=== PATIENT | male | born 1970 | race Caucasian/White ===

== ENCOUNTER 2016-11-26 11:33 | Observation (INO) | payer SELFPAY ==
[2016-11-26] MEDS ORDERED: methylPREDNISolone 125 MG* 2 ML VIAL IV ONE (12:25)
[2016-11-26] MEDS ORDERED: NS 0.9% 1000 ML* 1,000 ML IV ONE (12:25)
[2016-11-26 12:34] LABS: Hematocrit 47 % (42-52); Hemoglobin 15.7 g/dl (14.0-18.0); Mean Corpuscular HGB Conc 34 g/dl (31-36); Mean Corpuscular Hemoglobin 30 pg (27-31); Mean Corpuscular Volume 89 fL (80-94); Mean Platelet Volume 9 um3 (7.4-10.4); Red Blood Count 5.23 10^6/ul (4.0-5.4); Red Cell Distribution Width 13 % (10.5-15)
[2016-11-26] MEDS: Albuterol/Ipratropium NEB.SOL* Albuterol 2.5 MG/Ipratropium 0.5 MG 3 ML INH SCH ×5 (12:37→22:50)
[2016-11-26 12:45] LABS: Albumin 4.2 g/dL (3.2-5.2); BUN/Creatinine Ratio 12.8 (8-20); EGFR African American 112.1 (>60); EGFR Non-African American 87.2 (>60); Globulin 3.1 g/dL (2-4); Potassium 4.2 mmol/L (3.5-5.0); Total Bilirubin 0.6 mg/dL (0.2-1.0); Total Protein 7.3 g/dL (6.4-8.9)
[2016-11-26 12:46] LABS: Troponin I 0.01 ng/mL (<0.04)
[2016-11-26 13:03] LABS: C Reactive Protein 5.46 mg/L (< 5.00)
[2016-11-26] MEDS ORDERED: Azithromycin IV* 500 MG ADVAN VIAL IVPB ONE (13:58)
[2016-11-26] MEDS ORDERED: Albuterol/Ipratropium NEB.SOL* Albuterol 2.5 MG/Ipratropium 0.5 MG 3 ML INH ONE (14:14)
[2016-11-26 14:28] LABS: Urine Bilirubin Negative (Negative); Urine Glucose Negative (Negative); Urine Nitrite Negative (Negative)
--- NOTE | 2016-11-26 14:43 | RAD ---
HISTORY: Shortness of breath COMPARISONS: April 03, 2013 VIEWS: 2: Frontal dual-energy and lateral views of the chest. FINDINGS: CARDIOMEDIASTINAL SILHOUETTE: The cardiomediastinal silhouette is normal. SUNSHINE: The sunshine are normal. PLEURA: The costophrenic angles are sharp. No pleural abnormalities are noted. LUNG PARENCHYMA: The lungs are clear. ABDOMEN: The upper abdomen is clear. There is no subphrenic gas. BONES AND SOFT TISSUES: No bone or soft tissue abnormalities are noted. OTHER: None. IMPRESSION: NO ACTIVE CARDIOPULMONARY DISEASE.
--- NOTE | 2016-11-26 14:45 | ED ---
I, Oh,Hortensia, scribed for Eduardo Jewell MD on 11/26/16 at 1225 . Respiratory - HPI Summary HPI Summary: THis 46 y/o male presents to ED for chest congestion, productive cough, and dyspnea since a week ago. Upright position makes the dyspnea and chest congestion better. Pt also reports general myalgia, general weakness, subjective fever, and chest pain more notable at right. PMHx includes asthma and GERD. He is currently albuterol inhaler and omeprazole. 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 Onset/Duration: Gradual Onset Timing: Constant Initial Severity: Moderate Current Severity: Moderate Pain Intensity: 4 Character: Wheezing, Cough (Productive) Aggravating Factor(s): Nothing Alleviating Factor(s): Upright Position Associated Signs and Symptoms: Fever, Chest Pain, URI, Dyspnea - Allergy/Home Medications Allergies/Adverse Reactions: Allergies Allergy/AdvReac Type Severity Reaction Status Date / Time No Known Allergies Allergy Verified 11/26/16 11:43 PMH/Surg Hx/FS Hx/Imm Hx Endocrine/Hematology History: Denies: Hx Diabetes, Hx Systemic Lupus Erythematosus Cardiovascular History: Denies: Hx Congestive Heart Failure, Hx Hypertension Respiratory History: Reports: Hx Asthma GI History: Reports: Hx Gastroesophageal Reflux Disease History: Denies: Hx Dialysis, Hx Renal Disease Musculoskeletal History: Denies: Hx Rheumatoid Arthritis - Cancer History Hx Chemotherapy: No - Surgical History Surgery Procedure, Year, and Place: 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 same surgery 2X to the right ear; Infectious Disease History: No Infectious Disease History: Denies: Traveled Outside the [place] in Last 30 Days - Family History Known Family History: Positive: Cardiac Disease - Father Negative: Hypertension, Diabetes - Social History Lives: With Family Alcohol Use: Weekly Hx Substance Use: No Substance Use Type: Reports: None Hx Tobacco Use: No Smoking Status (MU): Never Smoked Tobacco Review of Systems Positive: Fever, Skin Diaphoresis Positive: Chest Pain - chest tightness more notable on right Positive: Shortness Of Breath, Cough Positive: Myalgia - general Positive: Weakness - general Negative: Anxious All Other Systems Reviewed And Are Negative: Yes Physical Exam - Summary Physical Exam Summary: VITAL SIGNS: Reviewed. GENERAL: Patient is a well developed and nourished male with some distress secondary to the shortness of breath. However, he is able to speak in full sentences. HEAD AND FACE: Normocephalic and atraumatic. EYES: PERRLA, EOMI x 2, No injected conjunctiva. EARS: Hearing grossly intact. Ear canals and tympanic membranes WNL MOUTH: Dry oral mucosa. NECK: Supple, trachea is midline, no adenopathy, no JVD, no carotid bruit. CHEST: Symmetric, No intercostal or abdominal retraction, LUNGS: Diffuse bilateral wheezing and decreased breath sounds.No crackles. CVS: RRR,, S1 and S2 present, no murmurs or gallops appreciated. ABDOMEN: Soft, non-tender. No signs of distention. Positive BS. No rebound, no guarding, and no masses palpated. EXTREMITIES: FROM in all major joints, no edema, no cyanosis or clubbing. NEURO: Alert and oriented x 3. No acute neurological deficits. Speech is normal and follows commands. SKIN: Dry and warm Vital Signs On Initial Exam: Initial Vitals Temp Pulse Resp BP Pulse Ox 97.0 F 85 20 187/91 98 11/26/16 11:38 11/26/16 11:38 11/26/16 11:38 11/26/16 11:38 11/26/16 11:38 - Parul Coma Scale Coma Scale Total: 15 Diagnostics - Vital Signs Vital Signs Temp Pulse Resp BP Pulse Ox 11/26/16 11:38 97.0 F 85 20 187/91 98 - Laboratory Result Diagrams: 11/26/16 12:10 11/26/16 12:10 Lab Statement: Any lab studies that have been ordered have been reviewed, and results considered in the medical decision making process. - Radiology CXR Xray Interpretation: No Acute Changes Radiology Interpretation Completed By: ED Physician Re-Evaluation - Re-Evaluation First Eval Re-Evaluation Time: 14:35 Change: Improved Comment: MD in room to re-evaluate the pt. Pt's symptoms have improved after azithromycine, duoneb treatments, and IV fluid. Plan of care involving discharge and outpatient f/u is discussed, and pt is agreeable. Disposition - Course Assessment/Plan: 46 y/o male presents to ED with chief complaint of SOB and productive cough with yellow/green phlegm. He denies any fever or chills, but reports night sweats. Bloodwork is WNL except for CRP of 5.4. CXR shows no acute pulmonary pathology. Physical examination reveals decreased breath sounds , wheezing, and bibasilar crackles. For this Pt was given IV fluids, solumedrol , multiple duoneb, and since pt is having SOB with productive cough and possibly fever, I gave pt azithromycin. After all treatemnt, pt is feeling better and his symptoms improved. Pt is hemodynamically stable. with 98% ox saturation on RA. I believe that pt had asthma exacerbation induced by bronchitis or early PNA. I discussed all the findings and test results with the patient. Patient was instructed to return to the emergency room immediately if any of the symptoms return or worsens. Patient understand and agree. Plan of care was discussed with the patient and understands and agrees. All questions were answered at patient satisfaction. There were no further complaints or concerns. Lung exam before discharge: CTA B/L. Good air exchange. No wheezing or crackles heard. CVS: S1 and S2 present. No murmurs appreciated. Patient is alert and oriented x 3. Patient is hemodynamically stable. 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 2-3 days - Differential Dx - Cardiopulmonary Differential Diagnoses - Cardiopulmonary: Asthma, CHF, Influenza - Diagnoses Provider Diagnoses: Asthma exacerbation, Bronchitis Discharge - Discharge Plan Condition: Stable Disposition: HOME Prescriptions: Albuterol HFA INHALER* [Ventolin HFA Inhaler*] 1 - 2 puff INH Q4H PRN #1 mdi PRN Reason: Shortness Of Breath Azithromycin TAB* [Zithromax TAB (Z-ALEJA)*] 250 mg PO DAILY #4 tab predniSONE TAB* [Deltasone TAB*] 40 mg PO DAILY #8 tab Patient Education Materials: Prednisone (By mouth), Azithromycin (By mouth), Asthma (ED), Acute Bronchitis (ED) Referrals: [facility] [place] PHYSICIAN REFERRAL [Outside] - 2 Days The documentation as recorded by the Zaki narayanan Soohyun accurately reflects the service I personally performed and the decisions made by me, Eduardo Jewell MD.
[2016-11-26 16:15] LABS: PCO2 Arterial 33 mmHg (35-45)
[2016-11-26] MEDS ORDERED: Albuterol 2.5 MG/3 ML NEB.SOL* (0.083%) INH PRN (18:12)
[2016-11-26] MEDS ORDERED: NS 0.9% 1000 ML* 1,000 ML IV SCH (18:15)
[2016-11-26] MEDS ORDERED: Azithromycin IV* 500 MG ADVAN VIAL IVPB SCH (19:00)
[2016-11-26] MEDS ORDERED: Albuterol/Ipratropium NEB.SOL* Albuterol 2.5 MG/Ipratropium 0.5 MG 3 ML INH SCH (19:00)
[2016-11-26] MEDS: methylPREDNISolone 125 MG* 2 ML VIAL IV SCH (20:14)
[2016-11-26] MEDS: Mometasone/Formoter 200/5 MDI INH SCH (21:40)
[2016-11-27] MEDS: Albuterol/Ipratropium NEB.SOL* Albuterol 2.5 MG/Ipratropium 0.5 MG 3 ML INH SCH ×7 (02:41→23:23)
[2016-11-27] MEDS: traMADol TAB* 50 MG PO PRN ×3 (03:26→20:02)
[2016-11-27] MEDS: Benzonatate CAP* 100 MG PO SCH ×4 (03:26→20:02)
--- NOTE | 2016-11-27 04:53 | HP ---
HISTORY AND PHYSICAL: DATE OF ADMISSION: 11/26/16 PRIMARY CARE PROVIDER: CLINT Almonte. ATTENDING PHYSICIAN WHILE IN THE HOSPITAL: Dr. Gilbert Wright * (report dictated by Tyree Rosa NP). CHIEF COMPLAINTS: 1. Shortness of breath. 2. Cough. 3. Congestion. HISTORY OF PRESENTING ILLNESS: Mr. Flores is a 46-year-old male patient that presented to the emergency department today with a history of having, since Sunday, progressive worsening shortness of breath and cough. In addition to this, he is having some feeling of congestion. He has been bringing up a white- type phlegm. He states that he has been taking his inhalers. He felt a little bit better at the end of the week. He states then he overdid it and he started feeling more short of breath again throughout the weekend. He was not getting any better, so he decided to come into the ER today. He denied having any fever. He does state that he feels warm when he does feel short of breath and he gets the chills. He states that he does have pain when he coughs, particularly in his chest. In addition to this, he states that it hurts to take a deep breath when he does feel short of breath. He came into the ER, he was evaluated. There was a concern for URI and possible asthma exacerbation. He was treated aggressively here in the ER, but despite this, he had an episode of hypoxia. After being treated, his O2 saturation was at 88% and because of this, the hospitalist service was asked to evaluate for admission. PAST MEDICAL HISTORY: Significant for asthma. PAST SURGICAL HISTORY: He has had ear surgery. HOME MEDICATIONS: Include: 1. ProAir 1 to 2 puffs every 4 to 6 hours as needed. 2. Omeprazole 20 mg p.o. daily. ALLERGIES: Allergies to medications include no known drug allergies. FAMILY HISTORY: His mother is healthy. Father had a history of heart disease and is . SOCIAL HISTORY: He does not smoke, he drinks occasionally. Surrogate decision maker is his significant other. He does have children. 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 REVIEW OF SYSTEMS: There is no documented fever. He denied having any significant weight change. There was no double vision. There is no ear discharge. He denies having any rhinorrhea or sore throat. He denies having thyroid enlargement. He does admit to having chest discomfort when he takes a deep breath. He does admit to dyspnea on exertion, but no shortness of breath at rest. He denies having any abdominal pain. There is no nausea, no vomiting , no dysuria, no frequency, no loss of consciousness, no pruritus. No skin ulcerations. Review of 14 systems completed. All others negative. PHYSICAL EXAMINATION GENERAL: At this time, Mr. Flores is a 46-year-old male patient. He appears well- nourished, well-developed. He is sitting in the ER stretcher. He does not appear to be in any acute distress. He is awake and alert. VITAL SIGNS: Reveals blood pressure initially of 189/91 with a pulse of 85, respirations 20, O2 sat 98%, his heart rate now is 89, respirations are 16, O2 sat is 98% on 3 L and last blood pressure is 156/75. HEENT: Head is atraumatic and normocephalic. Eyes: EOMs are intact. Sclerae anicteric and not pale. Throat: Oral mucosa appears to be moist. No oropharyngeal erythema. NECK: Supple. LUNGS: He did have expiratory wheezes noted in the upper lobes. He had equal diaphragmatic expansion. HEART: S1, S2. Regular rate and rhythm with no murmurs, rubs or gallops. ABDOMEN: Soft, it was flat, nontender. Bowel sounds were present. EXTREMITIES: Pulses were 2+ throughout. He was able to move all 4 extremities with 5/5 strength. NEUROLOGIC: He is awake, alert, and oriented x3. Speech clear. Tongue midline. No gross focal deficits. SKIN: Grossly intact. DIAGNOSTIC STUDIES/LAB DATA: Labs today revealed WBC of 8.0, RBC of 5.23, hemoglobin of 15.7, hematocrit of 47, and platelet count of 235. Blood gas revealed a pH of 7.1, pCO2 of 33, pO2 of 77. Sodium 135, potassium 4.2, chloride 103, bicarb 24, BUN 12, creatinine was 0.94 , glucose 100, lactate 1.7, calcium 9.0, total bili 0.6, AST 49, ALT 74, alk phos 63, troponin 0.01. CRP of 5.46. BNP of 27, albumin of 4. 2. Urine was negative. He had a chest x-ray obtained today and in my review, I do not appreciate any acute infiltrates or effusion. Radiology read it as no active cardiopulmonary disease. EKG is pending. Old medical records reviewed. ASSESSMENT AND PLAN: Mr. Flores is a 46-year-old male patient that presented to the emergency department today with complaints of cough, URI symptoms that were getting progressively worse over the last 5 days. He was treated aggressively in the ER, but despite this, he was hypoxic after treatment, 88%. He is now 98% on 3 L. Hospitalist service was asked to evaluate for admission. He will be admitted under observation status for: 1. Upper respiratory infection. At this point, it is probably a viral upper respiratory infection. I do think he does warrant azithromycin for the time being. I do think that the URI is probably causing an asthma flare. He has got a little bit of wheezing right now. He does not appear to be in status asthmaticus, but I would like to go ahead and put him on nebs every 4 hours of p.r.n. albuterol, Dulera, and Solu-Medrol 60 mg IV q. 12 hours. In addition to this, we will put him on azithromycin. We will send a flu swab, legionella and streptococcal antigen as well, and try to get a sputum culture. 2. Gastroesophageal reflux disease. Continue PPI therapy. 3. Asthma. We will go ahead and begin aggressive therapy in terms of steroids , nebs, inhaled steroids, and pulmonary toileting. 4. DVT prophylaxis. He is low risk and I am just going to put him on SCDs. 5. Fluid, electrolytes, and nutrition. He can have a regular diet. 6. Code status. Full code. TIME SPENT: Time spent on this admission was 60 minutes, greater than half the time was spent [id number] with the patient, obtaining my history of physical; the other half the time was spent going over the plan of care with the patient and implementing the plan of care. I did discuss the plan of care with my attending, Dr. Wright; he is in agreement. TYREE ROSA NP CC: CLINT Almonte* [id number]/[facility] #: [id number] SUPRIYA
[2016-11-27 06:46] LABS: Hematocrit 42 % (42-52); Mean Corpuscular HGB Conc 34 g/dl (31-36); Mean Corpuscular Hemoglobin 30 pg (27-31); Mean Corpuscular Volume 90 fL (80-94); Mean Platelet Volume 9 um3 (7.4-10.4); Red Blood Count 4.63 10^6/ul (4.0-5.4); Red Cell Distribution Width 14 % (10.5-15); White Blood Count 12.5 10^3/ul (3.5-10.8)
[2016-11-27 07:04] LABS: BUN/Creatinine Ratio 11.4 (8-20); Calcium 8.7 mg/dL (8.6-10.3); EGFR Non-African American 106.6 (>60)
[2016-11-27] MEDS: Mometasone/Formoter 200/5 MDI INH SCH ×2 (07:55→20:16)
[2016-11-27] MEDS: Omeprazole CAP* 20 MG PO SCH (10:01)
[2016-11-27] MEDS: methylPREDNISolone 125 MG* 2 ML VIAL IV SCH (10:02)
[2016-11-27] MEDS ORDERED: Azithromycin IV(*) 500 MG in NS 0.9% 250 ML* 250 ML IVPB SCH (14:00)
--- NOTE | 2016-11-27 15:00 | PN ---
Subjective Date of Service: 11/27/16 Interval History: Patient seen and evaluated at the bedside. Reports he feels better today but continues to have a "heavy chest, cough" reports occasional SOB. Ambulated around unit reporting he felt "pretty good", maintained O2 sat > 94%. Does not feel like he is at his baseline yet. Frequent cough, little sputum production. No fevers or chills. Reports good appetite. Objective Active Medications: Albuterol (Ventolin 2.5 Mg/3 Ml Neb.Angie*) 2.5 mg INH Q2H PRN PRN Reason: SOB/WHEEZING Albuterol/Ipratropium (Duoneb Neb.Angie*) 1 neb INH RT.[id number] AWAKE [facility] Last Admin: 11/27/16 11:44 Dose: 1 neb Benzonatate (Tessalon Cap*) 100 mg PO TID [facility] Last Admin: 11/27/16 14:31 Dose: 100 mg Mometasone Furoate/Formoterol Fumar (Dulera 200/5 Mdi*) 2 puff INH BID [facility] Last Admin: 11/27/16 07:55 Dose: 2 puff Omeprazole (Prilosec Cap*) 20 mg PO DAILY [facility] Last Admin: 11/27/16 10:01 Dose: 20 mg Tramadol HCl (Ultram*) 50 mg PO Q6H PRN PRN Reason: PAIN Last Admin: 11/27/16 11:16 Dose: 50 mg Vital Signs 11/26/16 11/26/16 11/26/16 19:44 22:51 23:22 Temperature 97.0 F Pulse Rate 90 81 Respiratory 16 16 18 Rate Blood Pressure 151/71 (mmHg) O2 Sat by Pulse 96 98 Oximetry 11/26/16 11/27/16 11/27/16 23:25 03:26 03:34 Temperature 97.3 F Pulse Rate 101 101 Respiratory 16 22 16 Rate Blood Pressure 165/75 151/95 (mmHg) O2 Sat by Pulse 97 96 Oximetry 11/27/16 11/27/16 11/27/16 05:26 07:27 07:57 Temperature 97.3 F Pulse Rate 87 76 Respiratory 16 18 16 Rate Blood Pressure 151/71 (mmHg) O2 Sat by Pulse 99 96 Oximetry 11/27/16 11/27/16 11/27/16 08:00 11:01 11:16 Temperature 97.3 F Pulse Rate 108 Respiratory 18 18 Rate Blood Pressure 138/77 (mmHg) O2 Sat by Pulse 98 Oximetry 11/27/16 11/27/16 11:46 13:16 Temperature Pulse Rate 85 Respiratory 16 18 Rate Blood Pressure (mmHg) O2 Sat by Pulse 97 Oximetry Oxygen Devices in Use Now: None Appearance: 46 yo obese male sitting up in bed A+O x3 in NAD Eyes: No Scleral Icterus, PERRLA Ears/Nose/Mouth/Throat: NL Teeth, Lips, Gums, Clear Oropharnyx, Mucous Membranes Moist Neck: NL Appearance and Movements; NL JVP Respiratory: Symmetrical Chest Expansion and Respiratory Effort, - - bilateral expiratory wheezes, mildly diminished Cardiovascular: NL Sounds; No Murmurs; No JVD, RRR, No Edema Abdominal: NL Sounds; No Tenderness; No Distention Extremities: No Edema Skin: No Rash or Ulcers Neurological: Alert and Oriented x 3 Lines/Tubes/Other Access: Clean, Dry and Intact Peripheral IV Nutrition: Taking PO's Result Diagrams: 11/27/16 05:46 11/27/16 05:46 Microbiology and Other Data: Microbiology 11/26/16 18:23 Influenza Types A,B Antigen (RUSSELL) - Final Nasal Specimen received for Influenza A/B Molecular testing Assess/Plan/Problems-Billing Assessment: Mr. Flores is a 46 yo male with a PMH of asthma who presented 11/26 with c/o 5 days of SOB - Patient Problems (1) Asthma exacerbation Comment: - suspect reactive airway disease secondary to viral illness. Slowly improving. No increased oxygen requirements today. Low suspicion for bacterial illness. Plan to continue IV steroids, DC abx. - Influenza negative. Blood cx negative. - Referral to Pulm at discharge, recommend PFTs, sleep study. (2) Transaminitis Comment: - mild. reports drinking over weekend. possible secondary to viral illness. recheck in am. (3) DVT prophylaxis Comment: SCDs (4) Full code status Status and Disposition: OBV switch to inpatient. Most likely DC home tomorrow.
[2016-11-27] MEDS: methylPREDNISolone SOD 40 MG* 1 ML VIAL IV SCH (20:05)
[2016-11-28] MEDS: Albuterol/Ipratropium NEB.SOL* Albuterol 2.5 MG/Ipratropium 0.5 MG 3 ML INH SCH ×3 (03:03→11:07)
[2016-11-28 07:39] LABS: Hematocrit 44 % (42-52); Hemoglobin 14.5 g/dl (14.0-18.0); Mean Corpuscular HGB Conc 33 g/dl (31-36); Mean Corpuscular Hemoglobin 30 pg (27-31); Mean Corpuscular Volume 91 fL (80-94); Mean Platelet Volume 9 um3 (7.4-10.4); Red Cell Distribution Width 14 % (10.5-15); White Blood Count 19.7 10^3/ul (3.5-10.8)
[2016-11-28 07:54] LABS: BUN/Creatinine Ratio 16.2 (8-20); Calcium 8.9 mg/dL (8.6-10.3); Direct Bilirubin 0.1 mg/dL (0.03-0.18); EGFR African American 147.8 (>60); EGFR Non-African American 114.9 (>60); Globulin 3.2 g/dL (2-4); Indirect Bilirubin 0.3 mg/dL (0.3-1.0); Potassium 4.6 mmol/L (3.5-5.0); Total Bilirubin 0.4 mg/dL (0.2-1.0); Total Protein 7.2 g/dL (6.4-8.9)
[2016-11-28] MEDS: Mometasone/Formoter 200/5 MDI INH SCH (08:03)
[2016-11-28] MEDS: Omeprazole CAP* 20 MG PO SCH (08:55)
[2016-11-28] MEDS: Benzonatate CAP* 100 MG PO SCH (08:55)
[2016-11-28] MEDS: methylPREDNISolone SOD 40 MG* 1 ML VIAL IV SCH (08:55)
[2016-11-28] MEDS ORDERED: amLODIPine TAB* 5 MG PO ONE (09:42)
--- NOTE | 2016-11-28 10:13 | DCNOTE ---
Subjective Date of Service: 11/28/16 Interval History: patient reports he feels much better and would like to go home. Was able to sleep well last night. continues to cough with no sputum production. no fevers or chills. Denies SOB or CP. Good appetite. No N/V/D or abdominal pain Pt reports he drinks heavily on the weekends drinking > 12 beers in a setting and 3-4 times a week drinks 6-7 beers/setting. Denies ever having a problem with alcohol and drinks socially Objective Active Medications: Albuterol (Ventolin 2.5 Mg/3 Ml Neb.Angie*) 2.5 mg INH Q2H PRN PRN Reason: SOB/WHEEZING Albuterol/Ipratropium (Duoneb Neb.Angie*) 1 neb INH RT.[id number] AWAKE [facility] Last Admin: 11/28/16 08:03 Dose: 1 neb Benzonatate (Tessalon Cap*) 100 mg PO TID [facility] Last Admin: 11/28/16 08:55 Dose: 100 mg Methylprednisolone Sodium Succinate (Solu-Medrol*) 40 mg IV Q12H [facility] Last Admin: 11/28/16 08:55 Dose: 40 mg Mometasone Furoate/Formoterol Fumar (Dulera 200/5 Mdi*) 2 puff INH BID [facility] Last Admin: 11/28/16 08:03 Dose: 2 puff Omeprazole (Prilosec Cap*) 20 mg PO DAILY [facility] Last Admin: 11/28/16 08:55 Dose: 20 mg Tramadol HCl (Ultram*) 50 mg PO Q6H PRN PRN Reason: PAIN Last Admin: 11/27/16 20:02 Dose: 50 mg Vital Signs 11/27/16 11/27/16 11/27/16 11:01 11:16 11:46 Temperature 97.3 F Pulse Rate 108 85 Respiratory 18 16 Rate Blood Pressure 138/77 (mmHg) O2 Sat by Pulse 98 97 Oximetry 11/27/16 11/27/16 11/27/16 13:16 14:56 15:16 Temperature Pulse Rate 82 Respiratory 18 16 18 Rate Blood Pressure (mmHg) O2 Sat by Pulse 91 Oximetry 11/27/16 11/27/16 11/27/16 15:31 15:47 18:42 Temperature Pulse Rate 107 114 Respiratory 18 Rate Blood Pressure 202/92 138/82 (mmHg) O2 Sat by Pulse 95 97 Oximetry 11/27/16 11/27/16 11/27/16 18:48 20:00 20:02 Temperature Pulse Rate 101 Respiratory 18 18 14 Rate Blood Pressure (mmHg) O2 Sat by Pulse 93 Oximetry 11/27/16 11/27/16 11/28/16 20:30 22:02 00:42 Temperature 97.5 F 97.8 F Pulse Rate 78 79 Respiratory 18 20 16 Rate Blood Pressure 168/70 163/92 (mmHg) O2 Sat by Pulse 96 95 Oximetry 11/28/16 08:05 Temperature Pulse Rate 78 Respiratory 16 Rate Blood Pressure (mmHg) O2 Sat by Pulse 98 Oximetry Oxygen Devices in Use Now: None Appearance: obese 46 yo male A+O x3 in NAD. good historian, appropriate Eyes: No Scleral Icterus, PERRLA Ears/Nose/Mouth/Throat: NL Teeth, Lips, Gums, Mucous Membranes Moist Neck: NL Appearance and Movements; NL JVP Respiratory: Symmetrical Chest Expansion and Respiratory Effort, Clear to Auscultation Cardiovascular: NL Sounds; No Murmurs; No JVD, RRR, No Edema Abdominal: NL Sounds; No Tenderness; No Distention, No Hepatosplenomegaly, - - obese Extremities: No Edema, No Clubbing, Cyanosis Skin: No Rash or Ulcers, No Nodules or Sclerosis Neurological: Alert and Oriented x 3, NL Sensation, NL Gait, NL Muscle Strength and Tone Lines/Tubes/Other Access: Clean, Dry and Intact Peripheral IV Nutrition: Taking PO's Result Diagrams: 11/28/16 07:19 11/28/16 07:19 Microbiology and Other Data: Microbiology 11/26/16 18:23 Influenza Types A,B Antigen (RUSSELL) - Final Nasal Specimen received for Influenza A/B Molecular testing Assess/Plan/Problems-Billing Assessment: Mr. Flores is a 46 yo male with a PMH of asthma who presented 11/26 with c/o 5 days of SOB - Patient Problems (1) Asthma exacerbation Comment: - suspect reactive airway disease secondary to viral illness. Slowly improving. No increased oxygen requirements today. - Influenza negative. Blood cx negative. - Referral to Pulm at discharge, recommend PFTs, sleep study. - D/C home on azithromycin, prednisone, albuterol nebs (2) Transaminitis Comment: - mild, trending down. reports drinking over weekend - suspect ETOH abuse. Plan for outpt liver ultrasound. Pt was strongly recommended to quit or dramatically cut back, pt reports he will cut down. Refuses need for SW consult (3) DVT prophylaxis Comment: SCDs (4) Full code status Status and Disposition: OBV switch to inpatient. stable for DC home today
[2016-11-28] MEDS ORDERED: Azithromycin TAB* 250 MG PO ONE (10:57)
[2016-11-28 12:37] VITALS: BP 145/84
--- NOTE | 2016-11-28 21:14 | DS ---
DISCHARGE SUMMARY: DATE OF ADMISSION: 11/26/16 DATE OF DISCHARGE: 11/28/16 ATTENDING PHYSICIAN: Dr. Mueller *(report dictated by Keenan Bergeron NP). PRIMARY CARE PROVIDER: CLINT Almonte. REFERRED TO: Dr. Spann, plant worker at discharge. PRIMARY DIAGNOSES: 1. Asthma exacerbation/reactive airway disease, possible acute bronchitis. 2. Transaminitis mild, suspect secondary to alcohol abuse. 3. Obesity. SECONDARY DIAGNOSIS: History of asthma. HISTORY OF PRESENT ILLNESS AND HOSPITAL COURSE: Please see history and physical by Tyree Rosa NP, for full admission details but in summary this is a 46-year-old male with a past medical history of asthma who presented to the emergency department on 11/26/16 with a report of progressive worsening shortness of breath and cough of 5 to 6 days with some feeling of congestion. He reported initially 5 to 6 days ago, he developed a cough with some chest congestion, coughing up some white phlegm. He reports he was taking his daughter's albuterol nebulizers and felt better. By the end of the week, he thought he was over it and spent the weekend outside hunting where he reported he did have some shortness of breath, walking up big hills but otherwise felt well. He reports on Sunday evening, he felt that he overdid it. On Sunday morning, he decided to come to the emergency department as after the albuterol nebulizer he was not feeling much better. In the emergency department, initially he was found to have an O2 sat of 98% on room air. In the emergency department, he did have an episode of hypoxia where his O2 sat decreased to 88% and did not resolve after albuterol nebulizer and Hospital Medicine was asked to evaluate the patient for admission. The patient was admitted to the hospitalist service for asthma exacerbation. The patient was started on IV Solu -Medrol, azithromycin with q.4-6 h. nebulizers. The patient has done very well throughout hospitalization. Yesterday, as well as today, the patient has been ambulating around the unit with O2 sats greater than 95%. He was going to be discharged yesterday; however, he still continued to have significant expiratory wheezes and he was kept for IV Solu-Medrol. Today, the patient reports he feels much better and denies any shortness of breath or wheezing today. Again, he was ambulating around the unit with O2 sats monitoring and on room air is 98% to 100%. He continues to have a nonproductive cough, which he has had through hospitalization. He reports this is slightly better today. Most likely this is asthma exacerbation with reactive airway disease, possible acute bronchitis. I discussed at length that I think the patient would benefit from an evaluation by Dr. Spann, plant worker, and a referral has been made at discharge. The patient should undergo pulmonary function testing as well. He does mention that he is very tired and fatigued throughout the day and does admit to snoring. He may benefit from a sleep study evaluation. In regards to the patient's transaminitis, this is noted to be mildly elevated on admission. I rechecked this morning and trending down. The patient has no hepatomegaly; however, he does have a very obese abdomen and difficult to assess and as well he has no tenderness. Most likely this is secondary to alcohol abuse. The patient admits to drinking 4 to 5 times throughout the week greater than 6 beers and on the weekends has around a 12-pack. He denies any problems with alcohol abuse; however, he does admit to a long history of drinking heavily. No history of detox or rehab and declines a social work consult for outpatient treatment. He states that he plans on cutting back. As well, I think the patient would benefit from an outpatient liver ultrasound. The patient had no signs of sepsis throughout hospitalization. No leukocytosis on admission. He did have a leukocytosis yesterday of 12.5 and today of 19.7, most likely this is secondary to steroids. Electrolytes within normal limits. Influenza A and B were both negative. Blood cultures have no growth. Legionella urinary antigen and S. Pneumonia urinary antigen are both negative. Sputum culture is pending at the time of dictation. I discussed diet and exercise with the patient at length due to the patient's BMI of 34, as well as his alcohol intake. The patient's was at the bedside and both the patient and the agree and are interested in some lifestyle changes. The patient was given some recommendations at discharge. Chest x-ray had no active cardiopulmonary disease noted. The patient also had a procalcitonin which was less than 0.1 which is negative and he had a mild CRP of 5.46. Low suspicion for pneumonia. There is no noted hyperinflation on the chest x-ray; however, it is possible the patient could have some underlying COPD as he was exposed to heavy secondhand smoke from both of his parents growing up. Again, the patient will be referred to Dr. Spann, plant worker, as an outpatient. DISCHARGE PLAN: 1. The patient is stable for discharge home. 2. Follow up with primary care, Katt Sevilla NP, within 3 to 5 days. 3. Referral to Dr. Spann, plant worker. 4. The patient should undergo an outpatient liver ultrasound in the close future. TIME SPENT: Approximately 60 minutes was spent on this discharge. KEENAN BERGERON NP CC: CLINT Almonte * [id number]/[facility] #: [id number]
== END 2016-11-28 12:10 | disposition home or self-care (01) ==
LOC: ED 11:33 → MED 18:09
PROVIDERS: ADMIT Internal Medicine; ATTEND Hospitalist
DX: J45.901 Unspecified asthma with (acute) exacerbation (principal); R74.0 Nonspecific elevation of levels of transaminase and lactic acid dehydrogenase [LDH]; E66.9 Obesity, unspecified; J06.9 Acute upper respiratory infection, unspecified; K21.9 Gastro-esophageal reflux disease without esophagitis
CPT/HCPCS: 36415; 71020; 80048; 80053; 80076; 81003; 82803; 83605; 83880; 84145; 84484; 85025; 86140; 87040; 87070; 87205; 87502; 87899; 93005; 94640; 94760; 96361; 96365; 96375; 96376; 99284; A9270-GY; G0378; J0456; J2920; J2930